=== PATIENT | male | born 1950 | race Caucasian/White ===

== ENCOUNTER 2017-05-19 13:23 | Inpatient (IN) | payer MEDICARE ==
[~2017-05-19] VITALS: Ht 175.3 cm; Wt 99.8 kg
[2017-05-19] MEDS ORDERED: KETOROLAC TROMETHAMINE 30 MG/ML VIAL IV STA (13:29)
[2017-05-19] MEDS ORDERED: SODIUM CHLORIDE 0.9% 1000ML 1,000 ML IV STA (13:29)
[2017-05-19] MEDS ORDERED: PIPER-TAZ 3.375 GM 50 ML IV STA (13:29)
[2017-05-19] MEDS ORDERED: ACETAMINOPHEN 1000 MG/100 ML IV STA (13:40)
[2017-05-19 13:43] LABS: BASOPHILS % 0.1 % (0.0-1.0); EOSINOPHILS % 0.1 % (0.0-6.0); HEMATOCRIT 43.2 % (38.2-49.6); LYMPHOCYTES # (AUTO) 0.8 (1.0-3.2); LYMPHOCYTES % 5.9 % (18.0-39.1); MEAN CORPUSCULAR HEMOGLOBIN 30.3 pg (28-32); MEAN CORPUSCULAR HGB CONC 34.7 g/dL (31-35); MEAN CORPUSCULAR VOLUME 87.3 fL (81-99); MONOCYTES # (AUTO) 1.5 (0.2-0.8); MONOCYTES % 10.7 % (4.4-11.3); NEUTROPHILS # (AUTO) 11.2 (2.1-6.9); PLATELET COUNT 184 x10e3/uL (140-360); RED BLOOD COUNT 4.95 x10e6/uL (4.3-5.7); RED CELL DISTRIBUTION WIDTH 13.2 % (11.7-14.4)
[2017-05-19 13:48] LABS: CLARITY,URINE CLEAR (CLEAR); COLOR,URINE YELLOW (YELLOW)
[2017-05-19 13:49] LABS: KETONES,URINE 1+ (NEGATIVE); LEUKOCYTE ESTERASE ,URINE NEGATIVE (NEGATIVE); NITRITE,URINE NEGATIVE (NEGATIVE); PROTEIN,URINE DIPSTICK 1+ (NEGATIVE); URINE UROBILINOGEN 0.2 mg/dL (0.2 - 1)
[2017-05-19 13:50] LABS: BILIRUBIN,URINE 1+ (NEGATIVE)
[2017-05-19 13:52] LABS: INR 1.15; PROTHROMBIN TIME 13.8 seconds (11.9-14.5)
[2017-05-19 13:53] LABS: PARTIAL THROMBOPLASTIN TIME 34.3 seconds (23.8-35.5)
[2017-05-19 13:54] LABS: BACTERIA,URINE FEW /HPF; EPITHELIAL CELLS,URINE RARE /LPF; MUCUS,URINE MANY (RARE)
[2017-05-19 14:02] LABS: ALANINE AMINOTRANSFERASE 26 IU/L (0-55); ALBUMIN 3.9 g/dL (3.5-5.0); ALBUMIN/GLOBULIN RATIO 1.1 (0.8-2.0); ALKALINE PHOSPHATASE 81 IU/L (40-150); ANION GAP 13.1 mmol/L (8-16); BLOOD UREA NITROGEN 17 mg/dL (7-26); BUN/CREATININE RATIO 15 (6-25); CALCIUM 9.8 mg/dL (8.4-10.2); CARBON DIOXIDE 26 mmol/L (22-29); CHLORIDE 99 mmol/L (98-107); CREATININE, SERUM 1.12 mg/dL (0.72-1.25); EST GLOMERULAR FILTRATION RATE > 60 ML/MIN (60-); GLUCOSE 139 mg/dL (74-118); POTASSIUM 4.1 mmol/L (3.5-5.1); SODIUM 134 mmol/L (136-145)
[2017-05-19] MEDS ORDERED: IOPAMIDOL 370 MG/ML 200 ML INFUS..BTL INJ ONE (14:27)
[2017-05-19] MEDS ORDERED: SODIUM CHLORIDE 0.9% 50ML 50 ML ONE (14:27)
--- NOTE | 2017-05-19 16:27 | Diagnostic Imaging Report ---
EXAM: CT Abdomen and Pelvis WITH contrast INDICATION: Abdominal pain and fever, evaluate for appendicitis COMPARISON: None. TECHNIQUE: Abdomen and pelvis were scanned utilizing a multidetector helical scanner from the lung base to the pubic symphysis after administration of IV contrast. Coronal and sagittal reformations were obtained. Routine protocol was performed. Scan was performed when during portal venous phase. IV CONTRAST: 100 mL of Isovue-370 ORAL CONTRAST: Water RADIATION DOSE: Total DLP: 609.2 mGy*cm Estimated effective dose: (DLP x 0.015 x size factor) mSv COMPLICATIONS: None FINDINGS: LINES and TUBES: None. LOWER THORAX: Lung bases are clear. Coronary artery calcifications. HEPATOBILIARY: No focal hepatic lesions. No biliary ductal dilation. GALLBLADDER: No radio-opaque stones or sludge. No wall thickening. SPLEEN: No splenomegaly. PANCREAS: No focal masses or ductal dilatation. Mild fatty replacement of the pancreas. ADRENALS: No adrenal nodules KIDNEYS/URETERS: Kidneys enhance symmetrically. No hydronephrosis. No cystic or solid mass lesions. No stones. GI TRACT: No abnormal distention, wall thickening, or evidence of bowel obstruction. The appendix is dilated measuring 1.2 cm in diameter and associated with mild wall thickening and surrounding fat stranding. There is a 9 mm appendicolith at the base. No surrounding abscess, fluid collection, or free air. PELVIC ORGANS/BLADDER: Unremarkable. LYMPH NODES: No lymphadenopathy. VESSELS: Unremarkable. PERITONEUM / RETROPERITONEUM: No free air or fluid. BONES: Unremarkable. SOFT TISSUES: Small bilateral fat-containing inguinal hernias. IMPRESSION: Acute nonperforated appendicitis. Findings correlate with clinical suspicion. Signed by: Dr. Salina Lilly M.D. on 05/19/2017 4:23 PM
[2017-05-19] MEDS ORDERED: D5.45%NS/KCL 20MEQ 1,000 ML IV SCH (16:59)
[2017-05-19] MEDS ORDERED: ONDANSETRON HCL INJ 2 MG/ML VIAL IV PRN ×3 (17:00→21:15)
[2017-05-19] MEDS ORDERED: HYDROMORPHONE 1MG/1ML INJ IV PRN (17:00)
[2017-05-19] MEDS ORDERED: DESFLURANE 240 ML BTL INH ONE (17:12)
[2017-05-19] MEDS ORDERED: PROPOFOL IV EMULSION 10 MG/ML 20 ML VIAL ONE (17:12)
[2017-05-19] MEDS ORDERED: KETOROLAC TROMETHAMINE 30 MG/ML VIAL ONE (17:12)
[2017-05-19] MEDS ORDERED: LIDOCAINE HCL 2% LOCAL INJ 5 ML SDV VIAL INJ ONE (17:12)
[2017-05-19] MEDS ORDERED: ROCURONIUM BROMIDE 10 MG/ML 5ML VIAL ONE (17:12)
[2017-05-19] MEDS ORDERED: NEOSTIGMINE 5 MG/5ML SYR ONE (17:12)
[2017-05-19] MEDS ORDERED: ONDANSETRON HCL INJ 2 MG/ML VIAL ONE (17:12)
[2017-05-19] MEDS ORDERED: GLYCOPYRROLATE INJ 1MG/ 5 ML SYR ONE (17:12)
[2017-05-19] MEDS ORDERED: DEXAMETHASONE SOD PHOS INJ 4 MG/ML VIAL ONE (17:12)
[2017-05-19] MEDS ORDERED: BUPIVACAINE 0.25%/EPI 30ML SDV INJ ONE (17:33)
[2017-05-19] MEDS ORDERED: CENTRUM SILVER1 EAC3 PO (17:35)
[2017-05-19] MEDS ORDERED: SIMVASTATIN20 MG PO (17:35)
[2017-05-19] MEDS ORDERED: ASPIR 8181 MG PO (17:35)
[2017-05-19] MEDS ORDERED: METOPROLOL SUCC50 MG PO (17:35)
--- OUTSIDE RECORDS SUMMARY | 2017-05-19 17:39 | XMS REPORT ---
Author Author [facility] Address Unknown Phone Unavailable Care Team Providers Care Rad Technologist Name Role Phone TONIA MI Unavailable Unavailable Problems This patient has no known problems. Allergies, Adverse Reactions, Alerts This patient has no known allergies or adverse reactions. Medications This patient has no known medications. Results Test Description Test Time Test Comments Text Results Atomic Results Result Comments CT ABDOMEN/PELVIS [address] [place] [id number] [place] [id number] Patient Name: NISHANT OLSON MR #: [id number] : 1950 Age/Sex: 66/M Req #: [id number] Adm Physician: Ordered by: TONIA MI MD Report #: [id number] Location: ER Room/Bed: Procedure: [id number] CT/CT ABDOMEN/PELVIS W Exam Date: 05/19/17 Exam Time: 1432 REPORT STATUS: Signed EXAM: CT Abdomen and Pelvis WITH contrast INDICATION: Abdominal pain and fever, evaluate for appendicitis COMPARISON: None. TECHNIQUE: Abdomen and pelvis were scanned utilizing a multidetector helical scanner from the lung base to the pubic symphysis after administration of IV contrast. Coronal and sagittal reformations were obtained. Routine protocol was performed. Scan was performed when during portal venous phase. IV CONTRAST: 100 mL of Isovue-370 ORAL CONTRAST: Water RADIATION DOSE: Total DLP: 609.2 mGy*cm Estimated effective dose: (DLP x 0.015 x size factor) mSv COMPLICATIONS: None FINDINGS: LINES and TUBES: None. LOWER THORAX: Lung bases are clear. Coronary artery calcifications. HEPATOBILIARY: No focal hepatic lesions. No biliary ductal dilation. GALLBLADDER: No radio-opaque stones or sludge. No wall thickening. SPLEEN: No splenomegaly. PANCREAS: No focal masses or ductal dilatation. Mild fatty replacement of the pancreas. ADRENALS: No adrenal nodules KIDNEYS/URETERS: Kidneys enhance symmetrically. No hydronephrosis. No cystic or solid mass lesions. No stones. GI TRACT: No abnormal distention, wall thickening, or evidence of bowel obstruction. The appendix is dilated measuring 1.2 cm in diameter and associated with mild wall thickening and surrounding fat stranding. There is a 9 mm appendicolith at the base. No surrounding abscess, fluid collection, or free air. PELVIC ORGANS/BLADDER: Unremarkable. LYMPH NODES: No lymphadenopathy. VESSELS: Unremarkable. PERITONEUM / RETROPERITONEUM: No free air or fluid. BONES: Unremarkable. SOFT TISSUES: Small bilateral fat-containing inguinal hernias. IMPRESSION: Acute nonperforated appendicitis. Findings correlate with clinical suspicion. Signed by: Dr. Roberto Webster M.D. on 05/19/2017 4:23 PM Dictated By: ROBERTO WEBSTER MD 162 Transcribed By: JOYCELYN on 05/19/17 1623 COPY TO: TONIA MI MD
[2017-05-19] MEDS ORDERED: PIPER-TAZ 3.375 GM 3.375 GM/100 ML BAG IV SCH (18:00)
[2017-05-19] MEDS ORDERED: PIPER-TAZ 3.375 GM 50 ML IV SCH (18:00)
[2017-05-19] MEDS ORDERED: METRONIDAZOLE 500MG/NS 100ML 200 ML IV ONE (19:08)
[2017-05-19] MEDS ORDERED: HYDROGEN PEROXIDE 120 ML BTL ONE (19:56)
[2017-05-19] MEDS ORDERED: NALOXONE HCL INJ 0.4 MG/ML AMP IV PRN ×2 (21:15)
[2017-05-19] MEDS ORDERED: MORPHINE SULFATE 1 MG/ML 30ML PCA IV PRN (21:15)
[2017-05-19] MEDS ORDERED: HYDROMORPHONE 0.2MG/ML-SOD CHL 30ML PCA SYRINGE IV PRN (21:15)
[2017-05-19] MEDS ORDERED: KETOROLAC TROMETHAMINE 30 MG/ML VIAL IV PRN (21:15)
[2017-05-19] MEDS ORDERED: DIPHENHYDRAMINE HCL INJ 50 MG/ML VIAL IM PRN (21:15)
[2017-05-19] MEDS ORDERED: ACETAMINOPHEN 1000 MG/100 ML IV PRN (21:15)
[2017-05-19] MEDS ORDERED: METOCLOPRAMIDE HCL 10 MG/2ML VIAL IV PRN (21:15)
[2017-05-19 21:26] VITALS: BP 126/62
[2017-05-19 21:45] VITALS: BP 126/62
[2017-05-19 22:00] VITALS: BP 110/60
--- NOTE | 2017-05-19 22:18 | Operative Report ---
DATE OF PROCEDURE: May 19, 2017 PREOPERATIVE DIAGNOSIS: Acute appendicitis. POSTOPERATIVE DIAGNOSIS: Acute retrocecal gangrenous appendicitis. PROCEDURE PERFORMED 1. Diagnostic laparoscopy. 2. Attempted laparoscopic appendectomy converted to open appendectomy. POWERHOUSE MECHANIC: ROYAL Vasques ESTIMATED BLOOD LOSS: Between 50 and 100 mL. DRAINS: One 10 flat Balaji-Antunez drain and two 1/4-inch Colstrip drains to the wound. COMPLICATIONS: None. INDICATIONS AND FINDINGS: The patient is a 66-year-old male admitted through the emergency room, complaining of abdominal pain that had begun approximately 24 to 26 hours prior to admission. The patient was watching the [place] [employer] game on Saturday, and during the he felt severe, excruciating pain. This was about 8 p.m. The patient went to bed and then the next morning presented to the emergency room. In the emergency room, the patient had a workup that revealed a white count of 13,000 with a shift to the left, a CT scan of the abdomen and pelvis that revealed acute appendicitis, nonperforated. On physical examination he had a temperature 102.5 and had very well-localized tenderness with rebound over McBurney's point. The patient was then taken to the operating room after obtaining informed consent. He was aware that whenever a laparoscopic procedure is undertaken there is always a possibility of having to perform an open procedure for multiple different reasons. INTRAOPERATIVE FINDINGS: The patient had acute retrocecal appendicitis with gangrenous appendix all the way down to the base of the cecum. There were severe inflammatory changes in the area of the retrocecal region. Because of the inability to see the appendix and because of the suspicion that we were dealing with a gangrenous appendicitis, we decided to open up the patient. The patient was opened up through a transverse right lower quadrant incision at the level of the umbilicus that was tailor-made for the area where the cecum had been identified and where the appendix presumably was. DESCRIPTION OF PROCEDURE: With the patient lying on the operating table in the supine position, after administration of general endotracheal anesthesia, he was prepped and draped for laparoscopic appendectomy, possible open appendectomy. The procedure was begun by establishing a pneumoperitoneum in the umbilical site after a stab wound was made in that location and the saline drop test was performed. A pneumoperitoneum was insufflated to 15 mm of pressure and then the 12-11 trocar placed in that location. We placed two other trocars, one in the right lower quadrant and one in the right upper quadrant using 5-mm trocars, and then we performed the diagnostic laparoscopy. We could not see the appendix well. It appeared to be retrocecal. We saw some murky fluid in the area of the cecum. The appendix was nowhere to be seen. I suspected that it was a gangrenous with localized perforation of the appendix in a retrocecal location and then decided that the safest route was to convert the procedure to an open procedure. We made then a transverse incision at the level of the umbilicus where the cecum was and then intra-abdominally using a muscle-splitting technique. Upon entering the abdomen, we then had to mobilize the cecum along the white line of Toldt. There were severe inflammatory changes in the area of the retrocecal region and in the area of the terminal ileum, and then after we mobilized the cecum, we were eventually able to deliver the cecum into the wound. The appendix was basically gangrenous. It had perforated at the level of the cecal junction. We at this point fired the TA-60 stapler at a point where the cecum was soft and pliable and away from the terminal ileum, which was carefully preserved. We then reinforced the closure of the cecum with interrupted 3-0 silk sutures. At this point, we copiously irrigated the right lower quadrant and the retroperitoneal area between lap pads. There was no abscess formation or gross pus. It was simply a gangrenous appendix with a localized perforation and severe reaction in the right lower quadrant area including the terminal ileum. After we irrigated the operative field, after we ascertained that there was no bleeding, no evidence of bile leak, we performed instrument and sponge count several times and then they were found to be correct. We placed a 10-mm flat Balaji-Antunez drain to drain the retrocecal area and brought it out through the right lower quadrant port site and secured there with 2-0 silk. At this point, we then closed the wound using a running 0 Vicryl for the peritoneum and posterior sheath, interrupted 0 Vicryl for the internal oblique muscle, and a running 1 Vicryl for the rectus sheath that had to be opened to expose the operative field, as well as the external oblique aponeurosis. Bleeding points were cauterized as they were encountered. The wound was irrigated multiple times as each layer was closed. Then we closed the subcutaneous tissues in two layers using 2-0 chromic catgut. We placed two Colstrip drains to drain the subcutaneous tissues, one in the deeper aspect of it and the other one in the more superficial layer, and both of them we brought out through a stab wound inferior and lateral to the incision, secured there with 2-0 silk. The skin was then closed using combination of 2-0 silk and chavo. The umbilical fascia was irrigated and closed using 0 Vicryl for the fascia and 2-0 chromic for the soft tissues, and the skin was closed using chavo. The right upper quadrant port was irrigated and closed using chavo. Sterile dressing was applied. The patient tolerated the procedure well, was taken to the recovery room in stable condition. Job#: [id number] EV
[2017-05-19 22:30] VITALS: BP 104/62
--- NOTE | 2017-05-19 22:54 | Operative Report ---
DATE OF PROCEDURE: NO DICTATION (00:03) Job#: [id number] CQ
[2017-05-19] MEDS: PANTOPRAZOLE 40 MG 10ML VIAL IV SCH (23:05)
[2017-05-19] MEDS: PIPER-TAZ 3.375 GM 3.375 GM/100 ML BAG IV SCH (23:30)
[2017-05-19 23:45] VITALS: BP 105/58
[2017-05-20] VITALS (8 sets, daily range): BP systolic 103–149; BP diastolic 52–68
[2017-05-20] MEDS: METRONIDAZOLE 500MG/NS 100ML 100 ML IV SCH ×4 (00:10→22:08)
[2017-05-20] MEDS: SODIUM CHLORIDE 0.9% 1000ML 1,000 ML IV SCH ×4 (00:48→21:02)
[2017-05-20] MEDS: PIPER-TAZ 3.375 GM 3.375 GM/100 ML BAG IV SCH ×3 (05:49→18:00)
[2017-05-20 07:02] LABS: BASOPHILS % 0.2 % (0.0-1.0); HEMATOCRIT 36.8 % (38.2-49.6); HEMOGLOBIN 12.3 g/dL (14.0-18.0); LYMPHOCYTES # (AUTO) 0.5 (1.0-3.2); LYMPHOCYTES % 3.6 % (18.0-39.1); MEAN CORPUSCULAR HEMOGLOBIN 29.7 pg (28-32); MEAN CORPUSCULAR HGB CONC 33.4 g/dL (31-35); MEAN CORPUSCULAR VOLUME 88.9 fL (81-99); MONOCYTES # (AUTO) 0.9 (0.2-0.8); NEUTROPHILS # (AUTO) 11.4 (2.1-6.9); NEUTROPHILS % 88.8 % (38.7-80.0); PLATELET COUNT 148 x10e3/uL (140-360); RED BLOOD COUNT 4.14 x10e6/uL (4.3-5.7); RED CELL DISTRIBUTION WIDTH 13.6 % (11.7-14.4)
[2017-05-20 07:17] LABS: ANION GAP 11.4 mmol/L (8-16); BLOOD UREA NITROGEN 19 mg/dL (7-26); BUN/CREATININE RATIO 19 (6-25); CALCIUM 8.6 mg/dL (8.4-10.2); CARBON DIOXIDE 24 mmol/L (22-29); CHLORIDE 105 mmol/L (98-107); CREATININE, SERUM 1.02 mg/dL (0.72-1.25); EST GLOMERULAR FILTRATION RATE > 60 ML/MIN (60-); GLUCOSE 140 mg/dL (74-118); POTASSIUM 4.4 mmol/L (3.5-5.1); SODIUM 136 mmol/L (136-145)
[2017-05-20] MEDS ORDERED: METOPROLOL SUCCINATE 50 MG TAB XL ONE (12:13)
[2017-05-20] MEDS: METOPROLOL SUCCINATE 50 MG TAB XL PO SCH ×2 (12:30→22:08)
[2017-05-20] MEDS ORDERED: FENTANYL CITRATE/PF 100MCG/2 ML INJ ONE (17:25)
[2017-05-20] MEDS ORDERED: MIDAZOLAM HCL 2 MG/2 ML VIAL ONE (17:25)
[2017-05-20] MEDS: PANTOPRAZOLE 40 MG 10ML VIAL IV SCH (22:08)
[2017-05-21] VITALS (7 sets, daily range): BP systolic 112–145; BP diastolic 55–76
[2017-05-21] MEDS: PIPER-TAZ 3.375 GM 3.375 GM/100 ML BAG IV SCH ×4 (00:41→18:08)
[2017-05-21] MEDS: METRONIDAZOLE 500MG/NS 100ML 100 ML IV SCH ×4 (03:59→21:58)
[2017-05-21] MEDS: SODIUM CHLORIDE 0.9% 1000ML 1,000 ML IV SCH ×2 (05:02→13:02)
[2017-05-21] MEDS: METOPROLOL SUCCINATE 50 MG TAB XL PO SCH ×2 (09:40→21:58)
[2017-05-21] MEDS ORDERED: BISACODYL 10 MG SUPP PR ONE (15:00)
[2017-05-21] MEDS: PANTOPRAZOLE 40 MG 10ML VIAL IV SCH (21:58)
[2017-05-22] VITALS (8 sets, daily range): BP systolic 143–169; BP diastolic 67–90
[2017-05-22] MEDS: PIPER-TAZ 3.375 GM 3.375 GM/100 ML BAG IV SCH ×4 (00:18→17:43)
[2017-05-22] MEDS: METRONIDAZOLE 500MG/NS 100ML 100 ML IV SCH ×2 (03:38→08:58)
[2017-05-22] MEDS: SODIUM CHLORIDE 0.9% 1000ML 1,000 ML IV SCH ×2 (06:06→16:27)
[2017-05-22] MEDS: METOPROLOL SUCCINATE 50 MG TAB XL PO SCH ×2 (08:58→21:21)
[2017-05-22 09:01] LABS: BASOPHILS % 0.2 % (0.0-1.0); EOSINOPHILS % 0.2 % (0.0-6.0); HEMATOCRIT 39.2 % (38.2-49.6); HEMOGLOBIN 13.4 g/dL (14.0-18.0); LYMPHOCYTES # (AUTO) 0.8 (1.0-3.2); LYMPHOCYTES % 7.1 % (18.0-39.1); MEAN CORPUSCULAR HEMOGLOBIN 30.2 pg (28-32); MEAN CORPUSCULAR HGB CONC 34.2 g/dL (31-35); MEAN CORPUSCULAR VOLUME 88.5 fL (81-99); MONOCYTES # (AUTO) 1.1 (0.2-0.8); NEUTROPHILS # (AUTO) 8.7 (2.1-6.9); NEUTROPHILS % 81.8 % (38.7-80.0); PLATELET COUNT 203 x10e3/uL (140-360); RED BLOOD COUNT 4.43 x10e6/uL (4.3-5.7); RED CELL DISTRIBUTION WIDTH 13.8 % (11.7-14.4)
[2017-05-22 09:35] LABS: ALANINE AMINOTRANSFERASE 16 IU/L (0-55); ALBUMIN 2.7 g/dL (3.5-5.0); ALBUMIN/GLOBULIN RATIO 0.8 (0.8-2.0); ALKALINE PHOSPHATASE 54 IU/L (40-150); ANION GAP 13.2 mmol/L (8-16); BLOOD UREA NITROGEN 21 mg/dL (7-26); BUN/CREATININE RATIO 23 (6-25); CARBON DIOXIDE 25 mmol/L (22-29); CHLORIDE 107 mmol/L (98-107); EST GLOMERULAR FILTRATION RATE > 60 ML/MIN (60-); GLUCOSE 128 mg/dL (74-118); POTASSIUM 4.2 mmol/L (3.5-5.1); SODIUM 141 mmol/L (136-145)
--- NOTE | 2017-05-22 11:32 | Diagnostic Imaging Report ---
PROCEDURE:ABDOMEN COMP INCL UPR OR DECUB INDICATION:Post appendectomy COMPARISON:Abdominal CT 05/19/2017. FINDINGS: Multiple dilated loops of small bowel are measured at 5.4 cm in diameter. There multiple air-fluid levels on upright view. Bowel gas is noted within the colon. A surgical drain projects over the right lower quadrant likely related to recent appendectomy. No acute bony abnormalities. Visualized lung bases are grossly clear. CONCLUSION: Dilated loops of small bowel with air-fluid levels and gas remaining within the colon may represent post-operative ileus or developing partial small bowel obstruction. Dictated by: Mac Thornton M.D. on 05/22/2017 at 11:33 Electronically approved by: Mac Thornton M.D. on 05/22/2017 at 11:33
[2017-05-22] MEDS: PANTOPRAZOLE 40 MG 10ML VIAL IV SCH (21:21)
[2017-05-23] VITALS (10 sets, daily range): BP systolic 143–162; BP diastolic 76–84
[2017-05-23] MEDS: PIPER-TAZ 3.375 GM 3.375 GM/100 ML BAG IV SCH ×5 (00:04→23:55)
[2017-05-23] MEDS: METOPROLOL SUCCINATE 50 MG TAB XL PO SCH ×2 (08:06→21:06)
[2017-05-23] MEDS ORDERED: HYDROCODONE/APAP 7.5MG-325MG 1 EA TAB PO PRN (08:15)
[2017-05-23] MEDS ORDERED: HYDROMORPHONE 1MG/1ML INJ IV PRN (08:15)
[2017-05-23] MEDS: SODIUM CHLORIDE 0.9% 1000ML 1,000 ML IV SCH (22:50)
[2017-05-24] VITALS: BP 164/83
[2017-05-24 04:32] VITALS: BP 146/75
[2017-05-24] MEDS: PIPER-TAZ 3.375 GM 3.375 GM/100 ML BAG IV SCH ×2 (05:39→12:15)
[2017-05-24] MEDS ORDERED: PANTOPRAZOLE 40 MG 10ML VIAL IV SCH (07:30)
[2017-05-24 08:23] VITALS: BP 157/79
[2017-05-24 09:10] VITALS: BP 157/79
[2017-05-24] MEDS: METOPROLOL SUCCINATE 50 MG TAB XL PO SCH (09:10)
[2017-05-24 12:00] VITALS: BP 158/83
[2017-05-24] MEDS ORDERED: LEVAQUIN500 MG PO (13:20)
[2017-05-24] MEDS ORDERED: TYLENOL WITH C1 EACH PO (13:21)
== END 2017-05-24 14:55 | disposition home or self-care (01) | DRG 853 ==
LOC: ER 13:23 → ERHOLD 17:36 → UNDOADMOB 17:36 → OR 17:43 → MED/SURG 21:43 → OBSVTOIN 05-21 14:58
PROVIDERS: ADMIT Surgery; ATTEND Surgery
PROC: 0WJG4ZZ Inspection of Peritoneal Cavity, Percutaneous Endoscopic Approach (ICD-10-PCS; 2017-05-19)
PROC: 0DTJ0ZZ Resection of Appendix, Open Approach (ICD-10-PCS; principal; 2017-05-19 18:00)
DX: A41.9 Sepsis, unspecified organism (principal); K35.3 Acute appendicitis with localized peritonitis; G47.33 Obstructive sleep apnea (adult) (pediatric); I10 Essential (primary) hypertension
CPT/HCPCS: 36415; 74177; 80048; 80053; 81001; 85025; 85610; 85730; 88304; 93005; 99284; G0378; J1100; J1885; J2001; J2250; J2405; J2543; J2765; J7030; Q9967

== ENCOUNTER → 2018-06-16 | Outpatient (CLI) | payer MEDICARE ==
[~2018-06-16] MED LIST: ASPIR 8181 MG PO; CENTRUM SILVER1 EAC3 PO; LEVAQUIN500 MG PO; METOPROLOL SUCC50 MG PO; SIMVASTATIN20 MG PO; TYLENOL WITH C1 EACH PO
--- NOTE | 2018-06-16 11:12 | Diagnostic Imaging Report ---
Left knee MRI without contrast. History: Knee pain. Decreased range of motion. Medial meniscus tear. Comparison: None. Technique: Multiplanar multi-sequence MRI of the knee without contrast. Findings: Medial compartment: There is a complex tear involving the posterior horn and body segments of the medial meniscus best seen on sagittal image 24. The medial compartmental articular cartilage surfaces are thinned with regions of fraying and fissuring. The medial collateral complex is intact. Lateral compartment: There is mid substance degeneration and mild fraying of the lateral meniscus. No meniscal tear or cartilage abnormality. The LCL complex is normal. Intercondylar notch: There is scarring and degeneration of the anterior cruciate ligament. The ACL and PCL are otherwise intact. Patellofemoral compartment: There is articular cartilage fraying and deep fissuring in the patellofemoral compartment with mild underlying bone marrow edema. Extensor mechanism: The quadriceps and patellar tendons are normal. Other findings: There is a joint effusion and synovitis. There is no acute fracture, subluxation or avascular necrosis. There is a small lobulated septated Schultz's cyst. There is mild soft tissue edema about the knee most pronounced anteriorly and laterally. IMPRESSION: Complex medial meniscus tear with mild degenerative arthrosis in the medial compartment of the knee. Scarring and degeneration of the anterior cruciate ligament. Articular cartilage fraying and deep fissuring in the patellofemoral compartment with mild underlying bone marrow edema. Signed by: Dr. Vance Rivas M.D. on 06/16/2018 11:08 AM
== END ==
LOC: MRI 09:41
PROVIDERS: ATTEND Specialist
DX: M25.562 Pain in left knee (principal); M25.462 Effusion, left knee; S83.232A Complex tear of medial meniscus, current injury, left knee, initial encounter; M71.22 Synovial cyst of popliteal space [Baker], left knee

== ENCOUNTER → 2018-06-18 | Outpatient (CLI) | payer MEDICARE | LOC: SLEEP 19:46 | PROVIDERS: ATTEND Internal Medicine | DX: R06.83 Snoring (principal); R40.0 Somnolence | CPT/HCPCS: 95810 ==

== ENCOUNTER → 2018-07-24 | Outpatient (CLI) | payer MEDICARE ==
[~2018-07-24] MED LIST changes: +METOPROLOL TART50 MG PO
--- NOTE | 2018-07-29 14:42 | Polysomnography ---
DATE OF STUDY: REFERRING PHYSICIAN: The patient with a previously diagnosed severe obstructive sleep apnea. He represents for CPAP titration. The patient was monitored using standard EEG montage including electrooculogram, submentalis EMG, anterior tibialis EMG, nasal and oral thermistors, ribcage and abdominal strain gauge monitor, pulse oximetry, nuclear monitoring technician. He was fitted with a nasal pillow, which he tolerated. The CPAP was initiated at 5 cm of water pressure. Central apneas were unmasked and he was titrated to a level of 13/9. He was subsequently changed to full face mask because of air leak at the mouth and the pressure was increased to 20/16. A medium ResMed AirFit full face mask was employed. During the study, a backup rate of 14 was ordered, though likely this will not be necessary once the patient's sleep apnea has been treated. It is recommended that the patient be given a home trial of BiPAP at a level of 20/16 employing a medium ResMed AirFit F10 mask. Heated humidification should be added to improve the patient comfort and compliance. All stages of sleep were recorded. Apneas and hypopneas were essentially eliminated, though not entirely. Trial of BiPAP is recommended with close clinical followup. There is no significant O2 desaturation. The patient reported feeling better at the end of the study. MD ENOC Pete/TOML /[id number]
== END ==
LOC: SLEEP 20:21
PROVIDERS: ATTEND Internal Medicine
DX: G47.33 Obstructive sleep apnea (adult) (pediatric) (principal)
CPT/HCPCS: 95811

== ENCOUNTER 2018-10-09 09:00 | Outpatient (RCR) | payer MEDICARE ==
[~2018-10-09 09:00] MED LIST changes: -METOPROLOL TART50 MG PO
== END 2018-10-11 ==
LOC: PT 09:00
PROVIDERS: ATTEND Specialist
DX: M25.562 Pain in left knee (principal); M25.561 Pain in right knee; M79.662 Pain in left lower leg; M25.662 Stiffness of left knee, not elsewhere classified; M17.0 Bilateral primary osteoarthritis of knee; M62.81 Muscle weakness (generalized)

== ENCOUNTER 2018-10-16 08:54 | Outpatient (RCR) | payer MEDICARE ==
[2018-10-29] MEDS ORDERED: METOPROLOL TART50 MG PO (12:05)
== END 2018-11-10 ==
LOC: PT 08:54
PROVIDERS: ATTEND Specialist
DX: M25.562 Pain in left knee (principal); M79.662 Pain in left lower leg; M16.12 Unilateral primary osteoarthritis, left hip; S83.242A Other tear of medial meniscus, current injury, left knee, initial encounter
CPT/HCPCS: 97139

== ENCOUNTER → 2018-10-30 | Day surgery (SDC) | payer MEDICARE ==
[2018-10-29 13:26] LABS: INR 0.94; PROTHROMBIN TIME 13.1 seconds (11.9-14.5)
[2018-10-29 13:27] LABS: PARTIAL THROMBOPLASTIN TIME 33.5 seconds (23.8-35.5)
[2018-10-29 13:31] LABS: ANION GAP 12.3 mmol/L (8-16); BLOOD UREA NITROGEN 20 mg/dL (7-26); BUN/CREATININE RATIO 20 (6-25); CALCIUM 9.8 mg/dL (8.4-10.2); CARBON DIOXIDE 27 mmol/L (22-29); CHLORIDE 103 mmol/L (98-107); EST GLOMERULAR FILTRATION RATE > 60 ML/MIN (60-); GLUCOSE 94 mg/dL (74-118); POTASSIUM 4.3 mmol/L (3.5-5.1); SODIUM 138 mmol/L (136-145)
--- NOTE | 2018-10-29 13:41 | Diagnostic Imaging Report ---
EXAM: CHEST 2 VIEWS DATE: 10/29/2018 12:05 PM INDICATION: [facility] COMPARISON: None FINDINGS: The trachea is midline. The lungs are symmetrically expanded without evidence for large focal consolidation, pneumothorax, or significant pleural effusion. The cardiomediastinal silhouette and pulmonary vasculature are within normal limits. There is mild tortuosity of the thoracic aorta with vascular calcifications. No acute osseous abnormality is identified. The surrounding soft tissues are unremarkable. IMPRESSION: No acute cardiopulmonary process identified. Signed by: Dr. Abhishek Guerra MD on 10/29/2018 1:37 PM
[2018-10-29 14:20] LABS: BASOPHILS % 0.4 % (0.0-1.0); EOSINOPHILS # (AUTO) 0.1 (0.0-0.4); EOSINOPHILS % 2.2 % (0.0-6.0); HEMOGLOBIN 13.9 g/dL (14.0-18.0); LYMPHOCYTES # (AUTO) 1.4 (1.0-3.2); LYMPHOCYTES % 24.5 % (18.0-39.1); MEAN CORPUSCULAR HEMOGLOBIN 30.1 pg (28-32); MEAN CORPUSCULAR HGB CONC 33.1 g/dL (31-35); MEAN CORPUSCULAR VOLUME 90.9 fL (81-99); MONOCYTES # (AUTO) 0.8 (0.2-0.8); MONOCYTES % 14.1 % (4.4-11.3); NEUTROPHILS # (AUTO) 3.3 (2.1-6.9); NEUTROPHILS % 58.6 % (38.7-80.0); PLATELET COUNT 178 x10e3/uL (140-360); RED BLOOD COUNT 4.62 x10e6/uL (4.3-5.7); RED CELL DISTRIBUTION WIDTH 13.1 % (11.7-14.4)
--- NOTE | 2018-10-29 17:52 | History and Physical ---
Mr. Wilson is a pleasant 68-year-old man who was seen in my office for the first time this week with a complaint of exertional chest discomfort and shortness of breath. HISTORY OF PRESENT ILLNESS: The patient reports that over the last month when he is mowing lawns that he gets some chest tightness and shortness of breath. It is relieved by sitting down and resting. PAST MEDICAL HISTORY: Significant for hypertension. He was only this year diagnosed with sleep apnea and has been using BiPAP since August of 2018. He is felt to have some gout attacks and hyperlipidemia. PREVIOUS SURGICAL HISTORY: Had appendectomy in 2016, knee surgery in 2009. CURRENT HOME MEDICATIONS: Include simvastatin 80 mg daily, metoprolol tartrate 50 mg twice a day, and aspirin 81 mg daily. PERSONAL AND SOCIAL HISTORY: He does not smoke. He does occasionally drink a beer. FAMILY HISTORY: Father at 67 with heart disease. Mother at 84 with dementia. He has 1 brother who of congestive heart failure. ALLERGIES: HE HAS NO MEDICAL ALLERGIES. REVIEW OF SYSTEMS: GI: Does not have any significant constipation, diarrhea. CARDIAC: He is not having any palpitations. PHYSICAL EXAMINATION: GENERAL: At this time shows a pleasant, alert man, who is about 5 feet 10 inches tall, weight 241 pounds. VITAL SIGNS: Blood pressure 134/80, pulse 78 and regular. HEAD, EYES, EARS, NOSE, THROAT: Unremarkable. NECK: No jugular venous distention. No bruits. THORAX: Heart sounds S1 and S2 are equal. No murmurs. LUNGS: Clear. ABDOMEN: Protuberant. Normal bowel sounds. Nontender. No masses. No organomegaly. EXTREMITIES: No cyanosis, clubbing, or edema. LABORATORY DATA: EKG shows sinus rhythm. Stress test suggest ST depression and stage II with duplication of chest discomfort, shortness of breath. ASSESSMENTS: 1. New onset exertional angina. 2. Hypertension. 3. Hyperlipidemia. 4. Sleep apnea. 5. History of gout. PLAN: I have given him nitroglycerin to use sublingual as needed. I will plan left heart catheterization for further management based on results of study. MD KISHA Ching/GUERA /[id number] cc: Marvin Reyes
[~2018-10-30] VITALS: Ht 177.8 cm; Wt 109.8 kg
[2018-10-30] VITALS (9 sets, daily range): BP systolic 110–141; BP diastolic 61–76
[~2018-10-30] MED LIST changes: +FENTANYL CITRATE/PF 100MCG/2 ML INJ ONE; +HEPARIN SOD/SOD CHLORIDE 2,000 ML ONE; +IOPAMIDOL 370 MG/ML 200 ML INFUS..BTL INJ ONE; +LIDOCAINE HCL 2% LOCAL 20 ML VIAL ONE; +METOPROLOL TART50 MG PO; +MIDAZOLAM HCL 2 MG/2 ML VIAL ONE; +SODIUM CHLORIDE 0.9% 1000ML 1,000 ML ONE
--- NOTE | 2018-10-30 10:15 | NUR ---
1015bedside report received from Aravind SNYDER.Identiferx2. Alert oriented and appropriate, PERRLA, respirations even and unlabored to room air. Pulses x4 extremities equal and strong. Pedal pulses PT/DP x4 and marked. Cap fill brisk < 3 sec. Skin warm and dry integrity appears D/I IV 20g to left arm via dial flow at 30cchr presents healthy w/o s/s of infiltration or complaint. Abdomen soft and supple. pt offered toileting, denies need to urinate or defecate. No personal affects with patient. Family Inna [phone]. Pt and family verbalizes understanding of POC.Awaiting disposition [facility] for surgical consult Dr Cooper multi vessel disease.Spoke nurse Keiko Snyder faxed diagram of lab aide report with history and physical. Packet complete with cd for transfer per ambulance. Received ok to each [place] [facility] [place] of all info with CD of procedure. Currently w/o complaint of pain or need. karen/maryellen
--- NOTE | 2018-10-30 10:34 | NUR ---
1034 Sheath pull by Elmer health information technologist 16min manual hold. Tegederm 4x[address]PPx4 present stasis achieved.ds/rn
--- NOTE | 2018-10-30 13:00 | NUR ---
1300 received bed clearance to 630B-1 Phone report to Meghan FUNG nurse and ambulance eta 30min. stable vs Rt groin w/o hematoma down time till 15pm. Iv site remain patent No s/s infiltration on dial a flow for kvo 30cchr. Tolerated snack tray. Back to baseline orientation. Family with pt and given directions to [facility] c=Center. NO gross issues pain,pallor,pressure or dysthymia,denies CP or SOB 1330 MICU Ambulance staff arrived and handoff completed MOT sign and escorted to ambulance bay by staff. Denies Cp or SOB Pt remain NST and stable vs No gross issues pain pallor pressure or dysrhythmia. Family has valuable and with escort. Rt femoral sheath site stable no hematoma or oozing. Ambulance has pt packet and CD in packet for Surgeon. karen/maryellen
--- NOTE | 2018-10-30 21:45 | Operative Report ---
DATE OF PROCEDURE: 10/30/2018 SURGEON: Long Fortune MD PROCEDURE: Cardiac cath report. INDICATION: Exertional chest discomfort. PROCEDURE IN DETAIL: The patient was brought to the director of labor relations in a fasting, partially sedated state, given 1 mg Versed intravenously. The right groin prepped with scrub and 2% Xylocaine and 4-Guamanian sheath placed in the right common femoral artery. Cardiac catheterization performed with a 4-Guamanian pigtail, 4-Guamanian right Kai 4 and a 4-Guamanian left Kai 5 catheters. The left ventricular function is normal with estimated ejection fraction of 60% without any demonstrated mitral regurgitation. The coronaries are seen to have mild diffuse calcifications. The right coronary is dominant with no stenoses identified at all. There are minor irregularities. The left main is good quality, but at the distal portion of the left main, there is a 99% focal stenosis. The proximal LAD has mild calcifications previously noted and immediately after a septal inspector exhaust emissions, there is a 99% stenosis. More distally, the LAD is a relatively small vessel with a medium size diagonal. There is a small ramus vessel that is unremarkable and the circumflex and OM vessels are unremarkable. The catheters and sheath were removed. Pressure was held. He was sent to his room in stable condition. There was no blood loss. No complication. FINAL IMPRESSION: 1. A 99% left main stenosis. 2. A 99% proximal LAD. 3. Mild diffuse calcifications. 4. Normal left ventricular function with EF of 60%. 5. Normal left internal mammary artery in the [place] location. RECOMMENDATION: Coronary bypass graft surgery. MD KISHA Ching/TOML /[id number] cc: Marvin Matthews MD
--- NOTE | 2018-10-31 13:58 | Discharge Summary ---
Mr. Wilson is a pleasant 68-year-old man, who has been generally healthy before admission with mild hypertension and mild hyperlipidemia. HOSPITAL COURSE: He was admitted for further evaluation of exertional chest discomfort. Left heart catheterization demonstrated 99% distal left main stenosis and 99% proximal LAD stenosis with mild calcifications of the coronaries and normal left ventricular function with ejection fraction of 60%. The patient tolerated the procedure well. No blood loss. No complication. His further care was discussed with Dr. Matthews and arrangements were made for him to be transferred to [facility]. There was some difficulty with weather, mode of transport, and planning. However, he was transferred by ambulance with expectation that he will have coronary bypass graft surgery. DISCHARGE DIAGNOSES: 1. Exertional angina. 2. 99% left main and 99% LAD stenosis. 3. Normal left ventricular function. 4. Hypertension. 5. Hyperlipidemia. MD KISHA Ching/GUERA /[id number] cc: MD Marvin Arce
== END | disposition short-term general hospital (02) ==
LOC: CATH LAB 07:47
PROVIDERS: ATTEND Internal Medicine Cardiovascular Disease
DX: I25.118 Atherosclerotic heart disease of native coronary artery with other forms of angina pectoris (principal); E78.2 Mixed hyperlipidemia; I10 Essential (primary) hypertension; G47.30 Sleep apnea, unspecified; M10.9 Gout, unspecified; Z01.812 Encounter for preprocedural laboratory examination; Z01.818 Encounter for other preprocedural examination; Z79.82 Long term (current) use of aspirin; Z82.49 Family history of ischemic heart disease and other diseases of the circulatory system
CPT/HCPCS: 36415; 71046; 80048; 85025; 85610; 85730; 86850; 86900; 93458; C1766; J2001; J2250; J3010; J7030; Q9967